=== PATIENT | male | born 1995 | race African-American/Black ===

== ENCOUNTER 2016-11-15 18:06 | Emergency (ER) | payer SELFPAY ==
[2016-11-15 18:06] VITALS: BP 151/69
[2016-11-15 18:11] VITALS: BMI 35.5
[2016-11-15] MEDS ORDERED: ZOFRAN INJ 4 MG VIAL IVP ONE (18:29)
[2016-11-15] MEDS ORDERED: NS 1000 ML 1,000 ML IV ONE ×2 (18:29→23:21)
[2016-11-15] MEDS ORDERED: NS 1000 ML 1,000 ML ONE ×2 (18:30→23:27)
[2016-11-15] MEDS ORDERED: ZOFRAN INJ 4 MG VIAL ONE (18:30)
[2016-11-15 19:05] LABS: BASOPHILS # (AUTO) 0.1 X10^3/uL (0.0-0.1); BASOPHILS % (AUTO) 0.6 % (0.2-1.0); EOSINOPHILS # (AUTO) 0.1 x10^3/uL (0.0-0.2); EOSINOPHILS % (AUTO) 0.5 % (0.9-2.9); HEMATOCRIT 42.8 % (42.0-54.0); HEMOGLOBIN 13.9 g/dL (13.5-18.0); LYMPHOCYTES # (AUTO) 0.5 X10^3/uL (1.3-2.9); MEAN CORPUSCULAR HEMOGLOBIN 26.4 pg (27.0-34.0); MEAN CORPUSCULAR HGB CONC 32.5 g/dL (33.0-35.0); MEAN CORPUSCULAR VOLUME 81.1 fL (80.0-100.0); MEAN PLATELET VOLUME 8.9 fL (7.4-11.0); MONOCYTES % (AUTO) 5.8 % (0.0-13.0); NEUTROPHILS # (AUTO) 15.5 x10^3/uL (2.2-4.8); NEUTROPHILS % (AUTO) 90.1 % (42.0-75.0); PLATELET COUNT 173 X10^3/uL (150.0-450.0); RED BLOOD COUNT 5.28 X10^6/uL (4.7-6.0); RED CELL DISTRIBUTION WIDTH 13.8 % (11.6-16.5); WHITE BLOOD COUNT 17.2 X10^3/uL (3.6-10.0)
--- NOTE | 2016-11-15 19:06 | DR.GENAD ---
HPI - PCP Primary Care Physician: [id number] - HPI Comment HPI Comment: N/V/D TIMES SEVERAL HOURS. GETTING WORSE. FEEL DEHYDRATED AND WEAK. - Complaint/Symptoms Chief Complaint Doctors Comments: NAUSEA, VOMITING AND DIARRHEA SINCE 02:00 AM TODAY. Chief Complaint:: patient stated he has had abd pain with nausea and vomiting since 2 am this morning - Nurses notes reviewed Nurses Notes Review: Yes - Source History Provided: Patient - Mode of Arrival Mode of Arrival: Ambulatory - Timing Onset of Chief Complaint: 11/14/16 Came on: Suddenly - Duration Duration: Constant Duration: Days - Severity Severity: Moderate PMH - PMH Past Medical History: Yes Past Surgical History: Yes Surgical History: Ortho Surgery - Family History History of Family Medical Conditions: No - Social History Does patient currently use any type of tobacco product: No Have you used tobacco products in the last 12 months: No Type of Tobacco Use: None Does any household member use tobacco: No Alcohol Use: None Do you use any recreational Drugs:: No Lives With: Family Lives Where: Home - infectious screening In the last 2 months have you had wt loss of >10#?: NO Have you had fever, night sweats or hemotysis?: No Have you traveled outside the country in the last 6 months?: No Isolation: Standard ROS - Review of Systems Constitutional: Diaphoresis, Weakness, Fatigue, Loss of Appetite. negative: Chills, Fever Eyes: No Symptoms Reported. negative: Eye Pain, Discharge ENTM: No Symptoms Reported. negative: Ear Discharge, Nose Discharge, Nose Congestion, Throat Pain Respiratoy: No Symptoms Reported. negative: Productive Cough, Non-Productive Cough, Short of Breath, Wheezing, Hemoptysis Cardiovascular: No Symptoms Reported. negative: Chest Pain, Edema, Syncope Gastrointestinal/Abdominal: Abdominal Pain, Diarrhea, Nausea, Vomiting. negative: Constipation Genitourinary: No Symptoms Reported. negative: Dysuria, Frequency, Hematuria Neurological: Weakness, Dizziness. negative: Headache Musculoskeletal: Muscle Pain Integumentary: Dryness Hematologic/Lymphatic: No Symptoms Reported Endocrine: No Symptoms Reported All Other Systems: Reviewed and Negative PE - Vital Signs Vitals: Temperature 98.4 F Blood Pressure 151/69 - General Limitations: No Limitations General Appearance: Alert - Head Head Exam: Normal Inspection - Eyes Eye exam: Normal Appearance - ENT ENT Exam: Normal External Ear Exam External Ear Exam: Normal External Inspection TM/Canal Exam: Bilateral Normal Nose Exam: Normal Nose Exam Mouth Exam: Normal Inspection Throat Exam: Normal Inspection - Neck Neck Exam: Trachea Midline. negative: Tenderness, Meningismus, Lymphadenopathy - Chest Chest Inspection: Symmetric Chest Wall Rise - Respiratory Respiratory Exam: Normal Lung Sounds Bilat Respiratory Exam: Bilateral Clear to Auscultation - Cardiovascular Cardiovascular Exam: Regular Rate, Normal Rhythm, Normal Heart Sounds - Abdominal Exam Abdominal Exam: Normal Bowel Sounds, Soft, Tenderness Abdominal Tenderness: Diffuse, Moderate - Extremities Extremities Exam: Normal Inspection - Back Back Exam: Normal Inspection - Neurologic Neurological Exam: Alert, Oriented X3 - Psychiatric Psychiatric Exam: Normal Affect, Normal Mood - Skin Skin Exam: Dry MDM - Additional Information Additional Information Obtained From: Family - Differential Diagnosis Differential Diagnosis: GASTROENTERITIS, INFECTIVE DIARRHEA, DEHYDRATION Course - Treatment Treatment: SEE ORDERS. IV FLUIDS AND IV ANTIBIOTICS, IMPROVING. - Reevaluation 1st: Improved - Education/Counseling Education/Counseling: Patient, Family, Education Educated On: Treatment, Diagnosis, Needs for Follow Up ROR - Labs Reviewed Laboratory Results Reviewed?: Yes Result Diagrams: 11/15/16 18:57 11/15/16 18:57 Laboratory: WBC 17.2 X10^3/uL (3.6-10.0) H 11/15/16 18:57 RBC 5.28 X10^6/uL (4.7-6.0) 11/15/16 18:57 Hgb 13.9 g/dL (13.5-18.0) 11/15/16 18:57 Hct 42.8 % (42.0-54.0) 11/15/16 18:57 MCV 81.1 fL (80.0-100.0) 11/15/16 18:57 MCH 26.4 pg (27.0-34.0) L 11/15/16 18:57 MCHC 32.5 g/dL (33.0-35.0) L 11/15/16 18:57 RDW 13.8 % (11.6-16.5) 11/15/16 18:57 Plt Count 173 X10^3/uL (150.0-450.0) 11/15/16 18:57 Plt Count Comment Adequate (ADEQUATE) 11/15/16 18:57 MPV 8.9 fL (7.4-11.0) 11/15/16 18:57 Neut % 90.1 % (42.0-75.0) H 11/15/16 18:57 Lymph % 3.0 % (21.0-51.0) L 11/15/16 18:57 [place] % 5.8 % (0.0-13.0) 11/15/16 18:57 Eos % 0.5 % (0.9-2.9) L 11/15/16 18:57 Baso % 0.6 % (0.2-1.0) 11/15/16 18:57 Neut # 15.5 x10^3/uL (2.2-4.8) H 11/15/16 18:57 Lymph # 0.5 X10^3/uL (1.3-2.9) L 11/15/16 18:57 [place] # 1.0 x10^3/uL (0.3-0.8) H 11/15/16 18:57 Eos # 0.1 x10^3/uL (0.0-0.2) 11/15/16 18:57 Baso # 0.1 X10^3/uL (0.0-0.1) 11/15/16 18:57 Absolute Nucleated RBC 0.0 /100WBC 11/15/16 18:57 Total Counted 100 11/15/16 18:57 Neutrophils % (Manual) 77 % (39-76) H 11/15/16 18:57 Band Neutrophils % 13 % (0-10) H 11/15/16 18:57 Lymphocytes % (Manual) 5 % (13-43) L 11/15/16 18:57 Monocytes % (Manual) 5 % (4-9) 11/15/16 18:57 Plt Morphology Comment Normal (NORMAL) 11/15/16 18:57 RBC Morphology Normal (NORMAL) 11/15/16 18:57 Sodium 141 mmol/L (136-145) 11/15/16 18:57 Corrected Sodium TNP 11/15/16 18:57 Potassium 4.0 mmol/L (3.5-5.1) 11/15/16 18:57 Chloride 106 mmol/L (98-107) 11/15/16 18:57 Carbon Dioxide 27.2 mmol/L (21-32) 11/15/16 18:57 BUN 13 mg/dL (7-18) 11/15/16 18:57 Creatinine 1.05 mg/dL (0.70-1.30) 11/15/16 18:57 Est GFR (MDRD) Af Amer > 60 (>60) 11/15/16 18:57 Est GFR (MDRD) Non-Af > 60 (>60) 11/15/16 18:57 Glucose 105 mg/dL (65-99) H 11/15/16 18:57 Calcium 8.8 mg/dL (8.5-10.1) 11/15/16 18:57 Corrected Calcium TNP 11/15/16 18:57 Total Bilirubin 0.30 mg/dL (0.2-1.0) 11/15/16 18:57 AST 23 Units/L (15-37) 11/15/16 18:57 ALT 34 Units/L (12-78) 11/15/16 18:57 Alkaline Phosphatase 94 Units/L (46-116) 11/15/16 18:57 Total Protein 7.8 g/dL (6.4-8.2) 11/15/16 18:57 Albumin 3.8 g/dL (3.4-5.0) 11/15/16 18:57 Globulin 4.0 g/dL (2.5-4.5) 11/15/16 18:57 Albumin/Globulin Ratio 1.0 Ratio (1.1-2.1) L 11/15/16 18:57 Amylase 73 Units/L (25-115) 11/15/16 18:57 Lipase 57 Units/L (73-393) L 11/15/16 18:57 Stool for White Cells Moderate (None) 11/15/16 22:15 - XRAY XRAY Interpreted by: Radiologist XRAY Findings: REPORT DISCUSS WITH PATIENT. - Diagnosis Discharge Problem: Gastroenteritis, Dehydration, Infective diarrhea - Discharge Plan Disposition: 01 HOME, SELF-CARE Condition: Stable Prescriptions: Ciprofloxacin HCl [CIPRO 500 MG TAB *] 500 mg PO Q12H #20 tab Metronidazole [Flagyl Tab 500 mg] 500 mg PO TID #21 tab Ondansetron HCl [Zofran Tab 4 mg] 4 mg PO Q8H PRN #20 tab PRN Reason: Nausea/Vomiting - Follow ups/Referrals Follow ups/Referrals: NFD,None [Primary Care Provider] - 2 days BELLO MCGOVERN [STAFF PHYSICIAN] - 2 days - Instructions Instructions: Viral Gastroenteritis, Adult, [id number], Dehydration, Adult, [id number], Diarrhea, Adult, [id number] Additional Instructions: RETURN TO ED IF WORSE.
[2016-11-15 19:14] LABS: ALANINE AMINOTRANSFERASE 34 Units/L (12-78); ALBUMIN 3.8 g/dL (3.4-5.0); ALKALINE PHOSPHATASE 94 Units/L (46-116); ASPARTATE AMINO TRANSFERASE 23 Units/L (15-37); BLOOD UREA NITROGEN 13 mg/dL (7-18); CALCIUM 8.8 mg/dL (8.5-10.1); CARBON DIOXIDE 27.2 mmol/L (21-32); CHLORIDE 106 mmol/L (98-107); CREATININE 1.05 mg/dL (0.70-1.30); GLUCOSE 105 mg/dL (65-99); SODIUM 141 mmol/L (136-145); TOTAL PROTEIN 7.8 g/dL (6.4-8.2); eGFR BLACK RACES > 60 (>60); eGFR NON BLACK RACES > 60 (>60)
[2016-11-15 19:35] LABS: BAND NEUTROPHILS % 13 % (0-10); PLATELET MORPHOLOGY COMMENT NORMAL (NORMAL)
[2016-11-15 19:37] LABS: AMYLASE 73 Units/L (25-115); LIPASE 57 Units/L (73-393)
[2016-11-15] MEDS ORDERED: FLAGYL IV PREMIX 500 MG BAG 500 MG/100 ML BAG IV ONE ×2 (23:21→23:27)
[2016-11-15] MEDS ORDERED: CIPRO IV 400 MG PREMIX* 400 MG/200 ML IV.SOLN. IV ONE (23:22)
[2016-11-15] MEDS ORDERED: LOMOTIL PO ONE (23:22)
[2016-11-15] MEDS ORDERED: LOMOTIL ONE (23:28)
[2016-11-16] MEDS ORDERED: CIPRO IV 400 MG PREMIX* 400 MG/200 ML IV.SOLN. IV ONE (00:35)
--- NOTE | 2016-11-16 05:15 | RAD ---
Acute abdomen series three views Indication: Pain. Findings: There is no free air or pneumatosis. Chest radiograph is normal. Gas stool seen in the col on. A few mid abdominal loops of prominent small bowel noted. Impression: No free air or pneumatosis. Few prominent mid abdominal loops of small bowel noted. Foll owup to exclude developing obstruction. Reported By:
== END 2016-11-16 02:52 | disposition home or self-care (01) ==
LOC: ER 18:14
DX: K52.89 Other specified noninfective gastroenteritis and colitis (principal); E86.0 Dehydration; A09 Infectious gastroenteritis and colitis, unspecified
CPT/HCPCS: 36415; 74022; 80053; 82150; 83690; 85025; 87205; 96365; 96367; 96374; 96375; 99283; A4222; S0030; J0744; J2405